=== PATIENT | female | born 1955 | race Caucasian/White ===

== ENCOUNTER 2017-06-23 21:00 | Emergency (ER) | payer BC, OTHER ==
[~2017-06-23] VITALS: Ht 162.6 cm; Wt 83.3 kg
[~2017-06-23 21:00] MED LIST: ASCO10003 PO; ASPEC81 PO; B-COTAB18 PO; CLB200 PO; FOLIC ACID PO; GLUCTAB7 PO; HYDR-5688 PO; MULT-506 PO; OMEG10002 PO; OXYSR10 PO; SNK PO; SPEC1TAB PO; VITAMIN B12 PO; VITAMIN E PO; ZINC PO
[2017-06-23 21:03] VITALS: TEMP 36.8; Ht 162.6 cm; Wt 83.3 kg
[2017-06-23] MEDS ORDERED: LORAZEPAM 2 MG/ML 1 ML VIAL IV STA (21:39)
[2017-06-23] MEDS ORDERED: SODIUM CHLORIDE 0.9% 1000ML 1,000 ML IV ONE (21:45)
[2017-06-23 22:00] VITALS: O2SAT 98
[2017-06-23 22:07] LABS: BASO % 0.3 %; BASO ABS # 0.04 K/uL (0-0.2); EOS % 2.4 %; EOS ABS # 0.28 K/uL (0-0.5); HEMATOCRIT 43.3 % (37-47); HEMOGLOBIN 14.5 g/dL (12.0-16.0); IG# 0.02 K/uL (0.00-0.02); LYMPH % 18.8 %; LYMPH ABS # 2.19 K/uL (1.2-3.4); MEAN CELL VOLUME 83.1 fL (80-100); MEAN CORPUSCULAR HEMOGLOBIN 27.8 pg (25-34); MEAN CORPUSCULAR HGB CONC 33.5 g/dl (32-36); MEAN PLATELET VOLUME 9.6 fL (7.4-10.4); MONO % 6.3 %; MONO ABS # 0.74 K/uL (0.11-0.59); PLATELET COUNT 287 K/uL (130-400); RED CELL DISTRIBUTION WIDTH CV 15.3 % (11.5-14.5); WHITE BLOOD COUNT 11.67 K/uL (4.8-10.8)
[2017-06-23 22:24] LABS: CALCIUM 9.1 mg/dl (8.5-10.1); CREATININE 0.82 mg/dl (0.60-1.20); POTASSIUM 3.5 mmol/L (3.5-5.1)
[2017-06-23 22:35] LABS: TOTAL PROTEIN 7.9 gm/dl (6.4-8.2)
--- NOTE | 2017-06-23 23:05 | DIAGNOSTIC IMAGING REPORT ---
HEAD CT NONCONTRAST CT DOSE: 912.23 mGycm HISTORY: Headache/dizzy TECHNIQUE: Multiaxial CT images of the head were performed without the use of intravenous contrast. Automated exposure control was utilized for this study. A dose lowering technique was utilized adhering to the principles of ALARA. Comparison: None. Findings: The paranasal sinuses and mastoid air cells are clear. The calvarium and skull base are intact. The ventricles and sulci are within normal limits. There is no mass, hematoma, midline shift, or acute infarct. Impression: No acute intracranial abnormality. Electronically signed by: Coy Jordan M.D. 06/23/2017 11:03 PM Dictated Date/Time: 06/23/2017 11:01 PM
[2017-06-24] MEDS ORDERED: ATIVAN 1MG HOMEPACK PO ONE
[2017-06-24 00:08] VITALS: BP 138/74; PULSE 74; O2SAT 98
--- NOTE | 2017-06-25 02:29 | EMERGENCY ROOM VISIT NOTE ---
History First contact with patient: 21:28 Chief Complaint: HEAD PAIN Stated Complaint: HEAD PRESSURE,SHAKY,EAR PRESSURE History of Present Illness The patient is a 62 year old female who presents to the Emergency Room with complaints of head pain and shakiness worsening over the past 1-2 days. The patient has a history of anxiety, and states that she was on Prozac from 2003 to about 2014. She states that she discontinued this medication and has had intermittent panic symptoms lasting 20 seconds, however these are occurring only 1-2 times a month. She states that she is under increased stressors over the past week, as she had to place her mother into a group home. The patient went to the group home today, where she states that she felt very hot, sweaty , and shaky. The patient is complaining of a head pain and pressure, but no other symptoms. She states there is some vague dizziness with moving her head quickly from side to side. She does not have chest pain, chest tightness, or shortness of breath. No numbness or paresthesias. She took 2 isno-vkl-ohkhlvl Aleve this morning for her symptoms which did seem to help. She also took Ativan tonight which also helped. She rates her overall discomfort a 4/10. This is not the worse headache of her life. She does not have a history of cardiac disease or diabetes. Review of Systems More than 10 systems were reviewed and otherwise negative with the exception of history of present illness. Past Medical/Surgical History History of anxiety Family History No pertinent family history Social History Smoking Status: Never Smoker Marital Status: Housing Status: lives with family Current/Historical Medications No Active Prescriptions or Reported Meds Physical Exam Vital Signs Date Time Temp Pulse Resp B/P (MAP) Pulse Ox O2 Delivery O2 Flow Rate FiO2 06/24/17 00:08 74 20 138/74 98 06/23/17 23:01 78 20 145/80 98 Room Air 06/23/17 22:00 98 Room Air 06/23/17 21:57 78 06/23/17 21:56 76 160/79 83 177/99 196/104 06/23/17 21:03 36.8 92 20 181/102 97 Room Air Physical Exam VITALS: Vitals are noted on the nurse's note and reviewed by myself. Vital signs stable. GENERAL: Well-developed, well-nourished, white female who appears anxious but nontoxic. She is cooperative with examination. HEAD: Normocephalic atraumatic. EARS: External ear normal. External auditory canals clear, tympanic membranes pearly laird without erythema or effusion bilaterally. EYES: Pupils equal round and reactive to light and accommodation. Conjunctivae without injection, sclerae without icterus. Extraocular movements intact. NOSE: Patent, turbinates without inflammation or discharge. MOUTH: Mucous membranes moist. Tonsils are not enlarged. Pharynx without erythema, blood, or exudate. Uvula midline. Airway patent. NECK: Supple without nuchal rigidity. No lymphadenopathy. No thyromegaly. Cervical spine is nontender. HEART: Regular rate and rhythm without murmurs gallops or rubs. LUNGS: Clear to auscultation bilaterally without wheezes, rales or rhonchi. No retractions or accessory muscle use. MUSCULOSKELETAL: No muscle atrophy, erythema, or edema noted. Full range of motion without joint tenderness in all extremities. NEURO: Patient was alert and oriented to person place and time. CN II through XII grossly intact. Medical Decision & Procedures ER Provider Diagnostic Interpretation: HEAD CT NONCONTRAST CT DOSE: 912.23 mGycm HISTORY: Headache/dizzy TECHNIQUE: Multiaxial CT images of the head were performed without the use of intravenous contrast. Automated exposure control was utilized for this study. A dose lowering technique was utilized adhering to the principles of ALARA. Comparison: None. Findings: The paranasal sinuses and mastoid air cells are clear. The calvarium and skull base are intact. The ventricles and sulci are within normal limits. There is no mass, hematoma, midline shift, or acute infarct. Impression: No acute intracranial abnormality. Laboratory Results 06/23/17 21:53 Red Blood Count 5.21, Mean Corpuscular Volume 83.1, Mean Corpuscular Hemoglobin 27.8, Mean Corpuscular Hemoglobin Concent 33.5, Mean Platelet Volume 9.6, Neutrophils (%) (Auto) 72.0, Lymphocytes (%) (Auto) 18.8, Monocytes (%) (Auto) 6.3, Eosinophils (%) (Auto) 2.4, Basophils (%) (Auto) 0.3, Neutrophils # (Auto) 8.40, Lymphocytes # (Auto) 2.19, Monocytes # (Auto) 0.74, Eosinophils # (Auto) 0.28, Basophils # (Auto) 0.04 06/23/17 21:53 Test 06/23/17 00:00 06/23/17 21:53 06/23/17 21:57 Urine Color YELLOW Urine Appearance CLEAR (CLEAR) Urine pH 5.0 (4.5-7.5) Urine Specific [place] 1.015 (1.000-1.030) Urine Protein NEG (NEG) Urine Glucose (UA) NEG (NEG) Urine Ketones NEG (NEG) Urine Occult Blood NEG (NEG) Urine Nitrite NEG (NEG) Urine Bilirubin NEG (NEG) Urine Urobilinogen NEG (NEG) Urine Leukocyte Esterase NEG (NEG) White Blood Count 11.67 K/uL (4.8-10.8) Red Blood Count 5.21 M/uL (4.2-5.4) Hemoglobin 14.5 g/dL (12.0-16.0) Hematocrit 43.3 % (37-47) Mean Corpuscular Volume 83.1 fL (80-100) Mean Corpuscular Hemoglobin 27.8 pg (25-34) Mean Corpuscular Hemoglobin Concent 33.5 g/dl (32-36) Platelet Count 287 K/uL (130-400) Mean Platelet Volume 9.6 fL (7.4-10.4) Neutrophils (%) (Auto) 72.0 % Lymphocytes (%) (Auto) 18.8 % Monocytes (%) (Auto) 6.3 % Eosinophils (%) (Auto) 2.4 % Basophils (%) (Auto) 0.3 % Neutrophils # (Auto) 8.40 K/uL (1.4-6.5) Lymphocytes # (Auto) 2.19 K/uL (1.2-3.4) Monocytes # (Auto) 0.74 K/uL (0.11-0.59) Eosinophils # (Auto) 0.28 K/uL (0-0.5) Basophils # (Auto) 0.04 K/uL (0-0.2) RDW Standard Deviation 46.0 fL (36.4-46.3) RDW Coefficient of Variation 15.3 % (11.5-14.5) Immature Granulocyte % (Auto) 0.2 % Immature Granulocyte # (Auto) 0.02 K/uL (0.00-0.02) Anion Gap 8.0 mmol/L (3-11) Est Creatinine Clear Calc Drug Dose 73.3 ml/min Estimated GFR () 88.3 Estimated GFR (Non- 76.2 BUN/Creatinine Ratio 14.6 (10-20) Calcium Level 9.1 mg/dl (8.5-10.1) Magnesium Level 2.3 mg/dl (1.8-2.4) Total Bilirubin 0.3 mg/dl (0.2-1) Aspartate Amino Transf (AST/SGOT) 16 U/L (15-37) Alanine Aminotransferase (ALT/SGPT) 27 U/L (12-78) Alkaline Phosphatase 114 U/L (45-117) Total Protein 7.9 gm/dl (6.4-8.2) Albumin 4.0 gm/dl (3.4-5.0) Globulin 3.9 gm/dl (2.5-4.0) Albumin/Globulin Ratio 1.0 (0.9-2) Lipase 142 U/L (73-393) Thyroid Stimulating Hormone (TSH) 1.600 uIu/ml (0.300-4.500) Lyme Disease IgG Antibody NEG (NEG) Lyme Disease IgM Antibody NEG (NEG) Bedside Troponin I < 0.030 ng/ml (0-0.045) Medications Administered Medications (Trade) Dose Ordered Sig/Scar Route Start Time Stop Time Status Last Admin Dose Admin Sodium Chloride 1,000 ml @ 999 mls/hr Q1H1M ONCE IV 06/23/17 21:45 06/23/17 22:45 DC 06/23/17 21:53 999 MLS/HR Lorazepam (Ativan Inj) 1 mg NOW STAT IV 06/23/17 21:39 06/23/17 21:42 DC 06/23/17 21:53 1 MG Lorazepam (Ativan 1MG Home Pack) 1 homepack UD ONCE PO 06/24/17 00:00 06/24/17 00:01 DC 06/24/17 00:05 1 HOMEPACK ED Course Physical exam and history were performed. Nursing notes, EMR, and Medication List were personally reviewed. Patient appears to have multiple complaints her to the emergency department this evening. Her primary concern is for some head pain as well as some anxiety symptoms. She evidently has a long standing history of anxiety that was previously controlled with SSRIs. She is not currently medicated for this. She has had increased stressors in her personal life the past few weeks. She relates that her had knee surgery, her sister's had bypass, and the patient's mother was admitted to the hospital and ultimately transported to a local group home. This seems to be worsening her overall symptoms. IV access was established and labs were obtained. The patient was hydrated and medicated as above. She is complaining of headache symptoms I did elect CT scan of her head. The patient's blood work is as above and was reviewed. She does not have a significantly elevated white blood cell count, gross anemia, bandemia, or significant electrolyte imbalance. Lipase and transaminases are nondiagnostic. TSH is in euthyroid state. CT scan of the head is nondiagnostic. Overall the patient reported significant improvement after hydration and Ativan here in the department. She continues to be mildly anxious but overall nontoxic. I discussed further options of care with the patient and feel that she is well for discharge home. Likely do suspect that her symptoms are related to her chronic generalized anxiety disorder that is exacerbated secondary to recent stressors. I will provide her a home pack of Ativan and have her follow with primary care physician for further management. The patient was certainly invited back to the ER with any new, worsening, or concerning symptoms. She was out of care was discharged home under the care of her who is acting as the otr flatbed driver today The chart was completed utilizing [employer] Speech Voice Recognition Software. Grammatical errors, random word insertions, pronoun errors, and incomplete sentences are an occasional consequence of this system due to software limitations, ambient noise, and hardware issues. Any formal questions or concerns about the content, text, or information contained within the body of this dictation should be directly addressed to the provider for clarification. . Medical Decision Differential diagnosis: Etiologies such as infection, intracranial bleed, mood disorder, infection, hypoglycemia, electrolyte abnormalities, cardiac sources, intracerebral event, toxicologic, neurologic, as well as others were entertained. Impression Primary Impression: Anxiety Departure Information Prescriptions No Active Prescriptions or Reported Meds Referrals Italo Chapa M.D.([facility]) (PCP) Patient Instructions My [facility]
== END 2017-06-24 00:09 | disposition home or self-care (01) ==
LOC: C.EDB 21:02
DX: F41.9 Anxiety disorder, unspecified (principal)

== ENCOUNTER 2017-09-05 05:10 | Inpatient (IN) | payer BC ==
[2017-08-09 14:32] VITALS: BMI 29.0
--- NOTE | 2017-08-09 14:56 | PAT Medication Instructions ---
Service Date Aug 09, 2017. Current Home Medication List Acetaminophen (Tylenol), 1,000 MG PO PRN Fluoxetine (Prozac), 40 MG PO QAM Hydroxyzine Pamoate (Vistaril), 1 CAP PO TID PRN for prn Ibuprofen Tab (Advil), 400 MG PO PRN Lorazepam (Ativan), 0.5 MG PO TID PRN for PRN Multivitamin (Multivitamin), 1 TAB PO QAM Medication Instructions For Your Scheduled Surgery -Contact your surgeon for instructions for: Ibuprofen Tab (Advil), 400 MG PO PRN - Hold the following medications the morning of surgery: Multivitamin (Multivitamin), 1 TAB PO QAM - Take the following medications the morning of surgery with a sip of water: Acetaminophen (Tylenol), 1,000 MG PO PRN (if needed, can be taken up to four hours before surgery) Fluoxetine (Prozac), 40 MG PO QAM Hydroxyzine Pamoate (Vistaril), 1 CAP PO TID PRN for prn (if needed) Lorazepam (Ativan), 0.5 MG PO TID PRN for PRN (if needed) - Take the following medications as scheduled the night before surgery: Acetaminophen (Tylenol), 1,000 MG PO PRN (if needed) Fluoxetine (Prozac), 40 MG PO QAM Hydroxyzine Pamoate (Vistaril), 1 CAP PO TID PRN for prn (if needed) Lorazepam (Ativan), 0.5 MG PO TID PRN for PRN (if needed) If you have any questions please call us at [phone] or [phone] or [phone]
--- NOTE | 2017-08-09 15:33 | DIAGNOSTIC IMAGING REPORT ---
CHEST 2 VIEWS ROUTINE CLINICAL HISTORY: Preoperative evaluation. COMPARISON STUDY: Chest radiograph January 20, 2015. FINDINGS: Lung volumes are normal. No pneumothorax or pleural effusion is noted. Linear left lower lung opacity is suggestive of atelectasis. There is no consolidation to suggest pneumonia. Cardiac size is normal. Mediastinal contours are normal. There is no evidence for pulmonary edema. IMPRESSION: No acute cardiopulmonary findings. Electronically signed by: Raghav Mary M.D. 08/09/2017 3:32 PM Dictated Date/Time: 08/09/2017 3:31 PM
[2017-08-09 15:38] LABS: PTT PATIENT 27.1 SECONDS (21.0-31.0)
[2017-08-09 15:49] LABS: BASO % 0.3 %; BASO ABS # 0.02 K/uL (0-0.2); EOS % 0.9 %; EOS ABS # 0.07 K/uL (0-0.5); HEMATOCRIT 41.4 % (37-47); HEMOGLOBIN 14.1 g/dL (12.0-16.0); LYMPH % 17.1 %; LYMPH ABS # 1.27 K/uL (1.2-3.4); MEAN CELL VOLUME 82.5 fL (80-100); MEAN CORPUSCULAR HEMOGLOBIN 28.1 pg (25-34); MEAN CORPUSCULAR HGB CONC 34.1 g/dl (32-36); MEAN PLATELET VOLUME 10.2 fL (7.4-10.4); MONO % 5.8 %; MONO ABS # 0.43 K/uL (0.11-0.59); NEUT % 75.9 %; NEUT ABS # 5.63 K/uL (1.4-6.5); PLATELET COUNT 265 K/uL (130-400); RED CELL DISTRIBUTION WIDTH CV 15.4 % (11.5-14.5); RED CELL DISTRIBUTION WIDTH SD 46.3 fL (36.4-46.3); WHITE BLOOD COUNT 7.42 K/uL (4.8-10.8)
[2017-08-09 16:41] LABS: ALBUMIN 3.8 gm/dl (3.4-5.0); CALCIUM 8.8 mg/dl (8.5-10.1); CREATININE 0.71 mg/dl (0.60-1.20)
[2017-08-10 06:38] LABS: HEMOGLOBIN A1C 5.8 % (4.5-5.6)
--- NOTE | 2017-08-24 14:51 | HISTORY & PHYSICAL EXAMINATION ---
DATE OF ADMISSION: 09/05/2017 CHIEF COMPLAINT: Left knee pain. HISTORY OF PRESENT ILLNESS: Rosibel is a 62-year-old female with a 2-year history of left knee pain. The patient rates her pain at 9/10. She has pain with her daily activities. She has limited standing and walking tolerance. Pain is worse with weightbearing. The patient has had injections, physical therapy, NSAIDs and home exercise program through the years without relief. She has failed conservative treatment and is scheduled for a left knee replacement. PAST MEDICAL HISTORY: Benign. She denies heart disease, diabetes or DVT. PAST SURGICAL HISTORY: Right total knee arthroplasty and left total hip arthroplasty. SOCIAL HISTORY: The patient denies tobacco use. She drinks 2 drinks per week. She lives in a 2-story home. She is and works in [employer]. FAMILY HISTORY: Positive for DVT in her mother. MEDICATIONS: Prozac, calcium, magnesium, fish oil 1200 mg, multivitamin, and Ativan p.r.n. ALLERGIES: None. REVIEW OF SYSTEMS: See HPI. Ten other systems reviewed, all negative. PHYSICAL EXAMINATION: VITAL SIGNS: Height 5 feet 4 inches, weight 177 pounds, and BMI 30. GENERAL: This is a well-developed and well-nourished female, who is alert and oriented x3. Mood and affect are appropriate. HEENT: Normocephalic and atraumatic. Mucous membranes are moist and intact. NECK: Supple without lymphadenopathy. HEART: Regular rate and rhythm without murmurs, rubs or gallops. LUNGS: Clear to auscultation without wheezes or rhonchi. ABDOMEN: Soft and nontender. Bowel sounds are equal and active. EXTREMITIES: No ecchymosis, redness or warmth. She has neutral alignment. Range of motion is from 5-115 degrees with +1 laxity. She is neurovascularly intact with +5/5 strength. X-RAY EXAMINATION: AP and lateral views show joint space narrowing and osteophyte formation. IMPRESSION: Degenerative joint disease, left knee. PLAN: The patient will be admitted for a left total knee arthroplasty. We will plan on aspirin for DVT prophylaxis. The patient will have [facility] for home physical therapy.
[2017-09-05] VITALS (9 sets, daily range): BP systolic 104–163; BP diastolic 61–94; PULSE 62–75; TEMP 36.4–37.1; O2SAT 96–99; Ht 162.6 cm; Wt 77.8 kg
[~2017-09-05] VITALS: Ht 162.6 cm; Wt 77.8 kg
[~2017-09-05 05:10] MED LIST changes: +ACET-1256 PO; -ASCO10003 PO; -ASPEC81 PO; -B-COTAB18 PO; -CLB200 PO; +FLUO40CA8 PO; -FOLIC ACID PO; -GLUCTAB7 PO; -HYDR-5688 PO; +HYDR25CA PO; +IBUP-103 PO; +LORA-741 PO; -OMEG10002 PO; -OXYSR10 PO; -SNK PO; -SPEC1TAB PO; -VITAMIN B12 PO; -VITAMIN E PO; -ZINC PO
[2017-09-05] MEDS ORDERED: GABAPENTIN 600 MG PO SCH (06:00)
[2017-09-05] MEDS ORDERED: CeleBREX 200 MG CAP PO SCH (06:00)
[2017-09-05] MEDS ORDERED: ACETAMINOPHEN 500 MG TAB PO SCH (06:00)
[2017-09-05] MEDS ORDERED: CEFAZOLIN 1000MG IV PUSH 7.5 ML IV SCH (06:00)
[2017-09-05] MEDS ORDERED: FAMOTIDINE 20 MG TAB PO SCH (06:00)
[2017-09-05] MEDS ORDERED: ROPIVACAINE 5MG/ML 30 ML 150 MG, BUPIVACAINE 0.5% MPF INJ 30 ML, EpINEphrine HCL INJ 0.... INFIL SCH ×8 (06:00)
[2017-09-05] MEDS ORDERED: METOCLOPRAMIDE HCL 10 MG TAB PO SCH (06:00)
[2017-09-05] MEDS ORDERED: LACTATED RINGER'S 1000ML 1,000 ML IV SCH (06:00)
[2017-09-05] MEDS ORDERED: LACTATED RINGER'S 1000ML 500 ML IV SCH (06:00)
[2017-09-05] MEDS ORDERED: DEXAMETHASONE 4 MG TAB PO SCH (06:00)
[2017-09-05] MEDS ORDERED: EpHEDrine SULFATE INJ 50 MG/ML AMP IV PRN (06:15)
[2017-09-05] MEDS ORDERED: ONDANSETRON INJ 2 MG/ML 2 ML VIAL IV PRN ×2 (06:15→09:00)
[2017-09-05] MEDS ORDERED: HYDROmorphone INJ 1 MG/ML SYR IV PRN (06:15)
[2017-09-05] MEDS ORDERED: FENTANYL CITRATE INJ 50 MCG/1 ML 2 ML VIAL IV PRN (06:15)
[2017-09-05] MEDS ORDERED: ATROPINE SULFATE 0.1 MG/ML 5ML SYR IV PRN (06:15)
[2017-09-05] MEDS ORDERED: PROMETHAZINE HCL INJ 12.5 MG in SODIUM CHLORIDE 0.9% 50ML 50 ML IV PRN (06:15)
[2017-09-05] MEDS ORDERED: PHENYLEPHRINE 100MCG/ML 5ML SYR IV PRN (06:15)
[2017-09-05] MEDS ORDERED: BUPIVACAINE 0.25% 30 ML VIAL ONE (06:29)
[2017-09-05] MEDS ORDERED: BUPIVACAINE 0.5 % 5 MG/1 ML PF 10ML VIAL ONE (06:29)
[2017-09-05] MEDS: TRANEXAMIC ACID INJ 1,000 MG x 2 Bags IV SCH ×4 (06:30→07:05)
[2017-09-05] MEDS ORDERED: MIDAZOLAM HCL 1 MG/ML 2ML VIAL ONE (06:53)
[2017-09-05] MEDS ORDERED: POVIDONE-IODINE OP SOLN 30 ML BTL ONE (06:53)
[2017-09-05] MEDS ORDERED: ORTHO JOINT ANESTHETIC ONE (06:53)
[2017-09-05] MEDS ORDERED: FENTANYL CITRATE INJ 50 MCG/1 ML 2 ML VIAL ONE ×2 (06:53→07:41)
[2017-09-05] MEDS ORDERED: BACITRACIN 50000 UNIT VIAL ONE (06:53)
--- NOTE | 2017-09-05 07:11 | History & Physical Bridge Note ---
H&P Re-Evaluation Bridge Note: I have examined the patient, reviewed the History & Physical and in the interval since the performance of the History & Physical I have noted the following changes of clinical significance: No changes noted
[2017-09-05] MEDS ORDERED: hydrOXYzine HCL 25 MG TAB PO PRN (07:15)
[2017-09-05] MEDS ORDERED: LORAZEPAM 0.5 MG TAB PO PRN (07:15)
[2017-09-05] MEDS ORDERED: ONDANSETRON INJ 2 MG/ML 2 ML VIAL ONE (08:34)
[2017-09-05] MEDS ORDERED: PROPOFOL IV EMULSION 10 MG/ML 20 ML VIAL IV ONE (08:34)
--- NOTE | 2017-09-05 08:46 | [facility] Post Operative Brief Note ---
Immediate Operative Summary Operative Date Sep 05, 2017. Pre-Operative Diagnosis Left knee degenerative joint disease Post-Operative Diagnosis Left knee degenerative joint disease Procedure(s) Performed Left total knee arthroplasty, cemented Surgeon Dr. Horta Distance Education Coordinator Surgeon(s) Samia Winslow PA-C Estimated Blood Loss 25 mL Findings Consistent with Post-Op Diagnosis Fluids (cc crystalloids) 1700 Specimens A: Left knee bone and tissue Drains None Anesthesia Type MAC Spinal Regional Complication(s) none Disposition Disposition: Recovery Room / PACU
[2017-09-05] MEDS ORDERED: PHENYLEPHRINE 100MCG/ML 5ML SYR ONE (08:55)
[2017-09-05] MEDS ORDERED: NEOSTIGMINE METHYLSULFATE 5 MG/5 ML SYR ONE (08:55)
[2017-09-05] MEDS ORDERED: TRAMADOL HCL 50 MG TAB PO PRN (09:00)
[2017-09-05] MEDS ORDERED: OXYCODONE HCL IR 5 MG TAB (IMMEDIATE RELEASE) PO PRN (09:00)
[2017-09-05] MEDS ORDERED: MAGNESIUM HYDROXIDE SUSP 30 ML UDC PO PRN (09:00)
[2017-09-05] MEDS ORDERED: MoRPHine SULFATE 4 MG/ML 1 ML CARP\\VIAL IV PRN (09:00)
--- NOTE | 2017-09-05 09:51 | DIAGNOSTIC IMAGING REPORT ---
L KNEE 1 OR 2 VIEWS ROUTINE CLINICAL HISTORY: Left knee osteoarthritis. Arthroplasty. COMPARISON: None FINDINGS: Alignment of the total left knee arthroplasty is anatomic. There is no fracture or unexpected radiopaque foreign body. Hardware is intact. IMPRESSION: Expected findings following total left knee arthroplasty. Electronically signed by: Raghav Mary M.D. 09/05/2017 9:50 AM Dictated Date/Time: 09/05/2017 9:49 AM
--- NOTE | 2017-09-05 10:02 | Anesthesiology Progress Note ---
Anesthesia Post Op Note Date & Time Sep 05, 2017 at 10:02 Vital Signs Pain Intensity: 0 Vital Signs Past 12 Hours Date Time Temp Pulse Resp B/P (MAP) Pulse Ox O2 Delivery O2 Flow Rate FiO2 09/05/17 09:39 77 18 98 09/05/17 09:39 76 18 09/05/17 09:37 106/64 09/05/17 09:34 73 17 100 09/05/17 09:34 74 17 09/05/17 09:33 74 14 09/05/17 09:33 74 14 100 09/05/17 09:33 74 14 09/05/17 09:33 74 14 100 09/05/17 09:32 107/61 09/05/17 09:32 107/61 09/05/17 09:28 75 15 100 09/05/17 09:28 75 15 09/05/17 09:28 75 15 100 09/05/17 09:28 75 15 09/05/17 09:26 105/60 09/05/17 09:26 105/60 09/05/17 09:23 74 17 09/05/17 09:23 74 17 09/05/17 09:23 74 17 100 09/05/17 09:23 74 17 100 09/05/17 09:22 102/60 09/05/17 09:22 102/60 09/05/17 09:19 106/57 09/05/17 09:19 106/57 09/05/17 09:18 78 20 09/05/17 09:18 78 20 99 09/05/17 09:18 36.4 76 16 106/57 99 Oxymask 10 09/05/17 09:18 78 20 09/05/17 09:18 78 20 99 09/05/17 05:40 37 75 20 163/94 98 Room Air Notes Mental Status: alert / awake / arousable, participated in evaluation Pt Amnestic to Procedure: Yes Nausea / Vomiting: adequately controlled Pain: adequately controlled Airway Patency, RR, SpO2: stable & adequate BP & HR: stable & adequate Hydration State: stable & adequate Neuraxial Anesthesia: was administered, sensory block is resolving Anesthetic Complications: no major complications apparent Comfortable, doing well, no complaints. VSS.
[2017-09-05] MEDS: FLUOXETINE HCL 20 MG CAP PO SCH (14:53)
[2017-09-05] MEDS: MULTIVITAMIN TAB PO SCH (14:54)
[2017-09-05] MEDS: ACETAMINOPHEN 500 MG TAB PO SCH ×2 (14:54→20:59)
[2017-09-05] MEDS: KETOROLAC TROMETHAMINE 30 MG/ML VIAL IV. SCH ×2 (14:55→20:58)
[2017-09-05] MEDS: CEFAZOLIN IV 1,000 MG in SYRINGE 0 ML IV SCH ×2 (16:27→23:00)
[2017-09-05] MEDS: SODIUM CHLORIDE 0.9% 1000ML 1,000 ML IV SCH (18:03)
[2017-09-05] MEDS ORDERED: NURSING VERBAL MED ORDER ONE (18:15)
--- NOTE | 2017-09-05 18:50 | Orthopedic Progress Note ---
Orthopedic Progress Note Date of Service Sep 05, 2017. Subjective Additional Notes: Post-operative progress note Patient seen laying in bed, comfortable, pain well controlled, no acute issues. Objective NAD, AOx3 PE: LLE: NVSI +EHL/FHL/TA/GS SILT grossly, CR< 2 seconds, + 2 DP pulse, compartment soft NT, dressing CDI Date Time Temp Pulse Resp B/P (MAP) Pulse Ox O2 Delivery O2 Flow Rate FiO2 09/05/17 16:05 37.1 66 16 110/69 (83) 98 Nasal Cannula 2.0 09/05/17 13:22 36.7 70 19 108/66 (80) 96 Nasal Cannula 2.0 09/05/17 12:25 63 14 105/63 (77) 98 Nasal Cannula 2.0 09/05/17 11:18 36.6 62 18 104/61 (75) 99 Nasal Cannula 2.0 09/05/17 10:51 36.4 62 19 111/70 (84) 99 Nasal Cannula 2.0 09/05/17 10:15 36.4 66 12 132/80 (97) 99 Nasal Cannula 2.0 09/05/17 10:15 Nasal Cannula 2.0 09/05/17 10:15 Nasal Cannula 09/05/17 10:07 112/74 09/05/17 10:05 72 12 97 09/05/17 10:05 69 12 09/05/17 10:01 36.6 67 21 121/67 96 Nasal Cannula 2 09/05/17 10:01 121/67 09/05/17 10:00 72 19 98 09/05/17 10:00 72 19 09/05/17 09:57 115/69 09/05/17 09:55 68 17 95 09/05/17 09:55 69 17 09/05/17 09:51 120/67 09/05/17 09:50 78 19 95 09/05/17 09:50 77 19 09/05/17 09:48 107/62 09/05/17 09:45 72 15 09/05/17 09:45 74 15 98 09/05/17 09:41 103/63 09/05/17 09:40 75 21 09/05/17 09:40 75 21 97 09/05/17 09:39 77 18 98 09/05/17 09:39 76 18 09/05/17 09:37 106/64 09/05/17 09:34 73 17 100 09/05/17 09:34 74 17 09/05/17 09:33 74 14 09/05/17 09:33 74 14 100 09/05/17 09:33 74 14 09/05/17 09:33 74 14 100 09/05/17 09:32 107/61 09/05/17 09:32 107/61 09/05/17 09:28 75 15 100 09/05/17 09:28 75 15 09/05/17 09:28 75 15 100 09/05/17 09:28 75 15 09/05/17 09:26 105/60 09/05/17 09:26 105/60 09/05/17 09:23 74 17 09/05/17 09:23 74 17 09/05/17 09:23 74 17 100 09/05/17 09:23 74 17 100 09/05/17 09:22 102/60 09/05/17 09:22 102/60 09/05/17 09:19 106/57 09/05/17 09:19 106/57 09/05/17 09:18 78 20 09/05/17 09:18 78 20 99 09/05/17 09:18 36.4 76 16 106/57 99 Oxymask 10 09/05/17 09:18 78 20 09/05/17 09:18 78 20 99 09/05/17 05:40 37 75 20 163/94 98 Room Air Assessment & Plan Assessment: s/p L TKA Plan: -ancef x 24 -DVT ppx: ASA BID -Pain controlled -WBAT LLE -PT/OT -AM labs -PO XR: well aligned well fixed total knee prosthesis without fracture or dislocation. -DC planning, home with
[2017-09-05] MEDS: DOCUSATE SODIUM 100 MG CAP PO SCH (20:58)
[2017-09-05] MEDS: ASPIRIN 325 MG ECTAB PO SCH (20:59)
[2017-09-05] MEDS ORDERED: SENNA 8.6 MG TAB PO SCH (21:00)
[2017-09-06] VITALS (8 sets, daily range): BP systolic 119–157; BP diastolic 70–82; PULSE 60–89; TEMP 36.7–37.1; O2SAT 94–98
[2017-09-06] MEDS: SODIUM CHLORIDE 0.9% 1000ML 1,000 ML IV SCH ×2 (02:37→07:20)
[2017-09-06] MEDS: KETOROLAC TROMETHAMINE 30 MG/ML VIAL IV. SCH ×2 (02:37→08:21)
[2017-09-06] MEDS: ACETAMINOPHEN 500 MG TAB PO SCH ×2 (05:39→13:50)
[2017-09-06 06:15] LABS: HEMATOCRIT 32.9 % (37-47); HEMOGLOBIN 10.8 g/dL (12.0-16.0); MEAN CELL VOLUME 82.9 fL (80-100); MEAN CORPUSCULAR HEMOGLOBIN 27.2 pg (25-34); MEAN CORPUSCULAR HGB CONC 32.8 g/dl (32-36); MEAN PLATELET VOLUME 10.2 fL (7.4-10.4); PLATELET COUNT 210 K/uL (130-400); RED CELL DISTRIBUTION WIDTH CV 15.4 % (11.5-14.5); WHITE BLOOD COUNT 11.75 K/uL (4.8-10.8)
[2017-09-06 06:39] LABS: CALCIUM 7.9 mg/dl (8.5-10.1); CREATININE 0.77 mg/dl (0.60-1.20); POTASSIUM 3.9 mmol/L (3.5-5.1)
[2017-09-06] MEDS ORDERED: RXC5 PO (07:30)
[2017-09-06] MEDS ORDERED: ONDA-170 PO (07:30)
[2017-09-06] MEDS ORDERED: SENN-61 PO (07:30)
[2017-09-06] MEDS ORDERED: ASPEC325 PO (07:30)
[2017-09-06] MEDS ORDERED: ACET-1256 PO (07:30)
[2017-09-06] MEDS ORDERED: CLB200 PO (07:30)
--- NOTE | 2017-09-06 07:31 | Discharge Instructions ---
Discharge Instructions Date of Service Sep 06, 2017. Admission Reason for Admission: Left Knee Osteoarthritis Discharge Discharge Diagnosis / Problem: SP LEFT TKA Discharge Goals Goal(s): Decrease discomfort, Improve function, Increase independence Activity Recommendations Activity Limitations: per Instructions/Follow-up section . Instructions / Follow-Up Instructions / Follow-Up ACTIVITY RECOMMENDATIONS: SELF CARE INSTRUCTIONS AFTER TOTAL KNEE REPLACEMENT A. You may need to continue a physical therapy program after discharge from the hospital. There are several options available to you. Your doctor will assist you in selecting the best one for you. 1. An out-patient facility 2 to 3 times a week for therapy or home therapy. 2. Continue working on all exercises taught to you in the hospital. Your goals should be to increase bending of your knee to 90 degrees and beyond and to fully straighten your knee. B. You may progress at your own pace from walking with a walker or crutches to a cane; then to no assistive devices. C. Make walking a part of your daily routine. Be up as much as comfortable with rest periods throughout the day. Rest with leg elevation is very important. Use the ice wrap frequently for the first 3-4 weeks. D. There are no restrictions on activities. You may ride in a car, shop, participate in molder setter and all social activities. E. Wear the long elastic stockings (LYNDON hose) 20 hours a day for 2 weeks after surgery. They can be removed several times a day for laundering and for a bath. F. You may shower, no tub baths until cleared by your doctor. SPECIAL CARE INSTRUCTIONS: VERY IMPORTANT TO READ AND REVIEW A. There are a few signs you need to watch for after you are home. Call [facility] if you notice any of the followin. Increased severe knee pain. Some pain is expected especially when you exercise. 2. Increased swelling in your leg or knee; pain or swelling of the calf muscle in either lower leg. 3. Any fluid drainage from the incision. 4. Shortness of breath or chest pain. B. Please call [facility] at if you have any concerns or questions about your operation or recovery. The doctor or his nurse will return your call promptly. C. You must take antibiotics before dental work, bladder, bowel or other surgery. Your doctor will provide you with a permanent care to carry describing this precaution. IMPORTANT: * REMEMBER TO TAKE ASPIRIN, 325 MG, TWICE DAILY FOR 4 WEEKS UNLESS OTHERWISE DIRECTED. THIS IS YOUR BLOOD THINNER. * HIGH RISK PATIENTS MAY BE PRESCRIBED A STRONGER BLOOD THINNER. THIS WILL BE PROVIDED AT DISCHARGE. * CALL IF INCREASED PAIN, REDNESS, DRAINAGE OR FEVER GREATER THAT 101. * WEAR LYNDON HOSE 20 HOURS PER DAY FOR 2 WEEKS. * DERMABOND Prineo- This is a mesh tape dressing that is covered with glue. It should remain in place until the incision is properly healed, usually 10-14 days. This dressing is designed to naturally slough off. You may trim the excess mesh tape as it peels off. Incision may be briefly wet in a shower. Dry immediately by blotting with a clean, dry towel. Do not bath or swim until instructed by your doctor. Do not scratch, rub, or pick at the dressing. Do not apply any topical ointments or lotions until dressing is completely removed and/or instructed by your doctor. There may be a small piece of suture material at one end of your incision. Do not pull or trim this. If it is bothersome or catching on clothing, you may cover it with a band-aid. FOLLOW UP VISIT: If appointment is not already scheduled: Please call [facility] to make a follow-up appointment for 2 weeks after your surgery at . Current Hospital Diet Patient's current hospital diet: Regular Diet Discharge Diet Recommended Diet: Regular Diet Procedures Procedures Performed: Left total knee arthroplasty, cemented Pending Studies Studies pending at discharge: no Laboratory Results Hemoglobin A1c Test 08/09/17 15:06 Range/Units Estimated Average Glucose 120 mg/dl Hemoglobin A1c 5.8 H 4.5-5.6 % Medical Emergencies . Who to Call and When: Medical Emergencies: If at any time you feel your situation is an emergency, please call 911 immediately. . Non-Emergent Contact Non-Emergency issues call your: Surgeon . "Provider Documentation" section prepared by Samia Winslow. . [place] Drug Monitoring Program Search Results: patient reviewed within database, no issues identified
[2017-09-06] MEDS: DOCUSATE SODIUM 100 MG CAP PO SCH (08:19)
[2017-09-06] MEDS: MULTIVITAMIN TAB PO SCH (08:20)
[2017-09-06] MEDS: ASPIRIN 325 MG ECTAB PO SCH (08:20)
[2017-09-06] MEDS: FLUOXETINE HCL 20 MG CAP PO SCH (08:20)
[2017-09-06] MEDS ORDERED: PANTOprazole SOD 40 MG TAB PO SCH (09:00)
--- NOTE | 2017-09-06 10:06 | Orthopedic Progress Note ---
Orthopedic Progress Note Date of Service Sep 06, 2017. Subjective Additional Notes: Patient seen laying in bed, comfortable, pain well controlled, no complaints, no acute issues overnight. Objective NAD, AOx3 PE LLE: NVSI +EHL/FHL/TA/GS SILT grossly, CR< 2 seconds, + 2 DP pulse, compartment soft NT, dressing CDI Date Time Temp Pulse Resp B/P (MAP) Pulse Ox O2 Delivery O2 Flow Rate FiO2 09/06/17 09:37 96 Room Air 09/06/17 08:01 36.7 62 21 96 Room Air 09/06/17 07:56 36.7 62 21 124/70 (88) 96 Room Air 09/06/17 07:30 98 Room Air 09/06/17 03:51 37.1 71 16 119/73 (88) 98 Room Air 09/05/17 23:24 37.0 68 16 127/70 (89) 97 Room Air 09/05/17 20:45 Room Air 09/05/17 19:31 36.9 16 132/70 (90) 97 Room Air 09/05/17 16:05 37.1 66 16 110/69 (83) 98 Nasal Cannula 2.0 09/05/17 13:22 36.7 70 19 108/66 (80) 96 Nasal Cannula 2.0 09/05/17 12:25 63 14 105/63 (77) 98 Nasal Cannula 2.0 09/05/17 11:18 36.6 62 18 104/61 (75) 99 Nasal Cannula 2.0 09/05/17 10:51 36.4 62 19 111/70 (84) 99 Nasal Cannula 2.0 09/05/17 10:15 36.4 66 12 132/80 (97) 99 Nasal Cannula 2.0 09/05/17 10:15 Nasal Cannula 2.0 09/05/17 10:15 Nasal Cannula 09/05/17 10:07 112/74 09/05/17 10:05 72 12 97 09/05/17 10:05 69 12 Laboratory Results 24 Hours: Test 09/06/17 05:23 Hematocrit 32.9 % Hemoglobin 10.8 g/dL Prothromb Time International Ratio 1.0 Prothrombin Time 10.6 SECONDS Assessment & Plan Assessment: s/p L TKA POD#1 Plan: -ancef x 24 -DVT ppx: ASA BID -Pain controlled -WBAT LLE -PT/OT -AM labs -PO XR: well aligned well fixed total knee prosthesis without fracture or dislocation. -DC planning, home with HH
--- NOTE | 2017-09-06 13:12 | [facility] Operative Report ---
Operative Report Operative Date Sep 06, 2017. Pre-Operative Diagnosis Left knee degenerative joint disease Post-Operative Diagnosis Left knee degenerative joint disease Procedure(s) Performed Left total knee arthroplasty, cemented Surgeon Dr. Horta Ssas Developer Surgeon(s) Samia Winslow PA-C Estimated Blood Loss 25 mL Findings see dictated op note Fluids 1700 Specimens A: Left knee bone and tissue Drains None Anesthesia Type MAC Spinal Regional Complication(s) none Disposition Recovery Room / PACU Indications The patient is a 62-year-old female who presents with long history of left knee severe tricompartmental DJD which is failed outpatient conservative treatments including NSAIDs, bracing, cortisone injections home walking/exercise program. The patient's symptoms have progressed to the point where it has been difficult for to perform normal activities of daily living. I have indicated the patient for a left total knee arthroplasty, the risks and benefits and complications of the procedure include but are not limited to infection bleeding damage to bone nerves vessels surrounding soft tissue, blood clots loss of function leg length discrepancy dislocation failure of the components need for additional surgery and . The patient wished to proceed with surgery at this time and informed consent was obtained. Appropriate clearances were obtained. Description of Procedure The patient was taken to the operating room and appropriate anesthesia was administered. She was placed supine on the operating room table. A foot roll was placed so we could flex the knee during the procedure as needed. Pneumatic tourniquet was placed on the left upper thigh. Left lower extremity was prepped and draped in usual sterile fashion. Exam demonstrated that she had a varus knee fairly good range of motion. She had moderate obesity. After the leg was sterilely prepped and draped, it was elevated, exsanguinated with Esmarch bandage. Pneumatic tourniquet was raised to 300 mmHg. A midline incision was made anteriorly across the left knee. Skin was incised sharply and subcutaneous flaps were elevated. Incision was made through the medial retinaculum extended up in the mid third of the quadriceps tendon and extended down to the medial tibial tubercle. Intraarticular findings demonstrated that she had significant DJD medial compartment and PFJ [id number] with a varus knee. She did have some tricompartmental osteophytes. The [employer] 2.0 total knee arthroplasty system was used using [employer] [place] MRI templating and her femur sized for a 5, tibia for a 3 component. To expose the knee the infrapatellar fat pad was resected. The lateral synovial bands were released. The cruciate ligaments were resected. The meniscal remnants were resected. The fat pad over the anterior femur just above the articular surface for placement of the component in that area was resected. The knee was flexed and retractors were placed and the custom femoral cutting block was pinned in position and the distal femoral cut was made. Then the 5-in-1 cutting block was placed and the anterior, posterior and chamfer cuts were made for the 5 femur. Then attention was taken back to the tibia which was subluxed anteriorly and the custom tibial cutting block was pinned in position and the proximal tibial cut was made. Then we assessed ligamentous balance in extension and flexion utilizing the 10mm spacer block and drop robin and did some releases around the medial side to help with the balance. At this time, the tibia was then resubluxed and the 3 tibial trial was placed in position, externally rotated laterally with the tibial tubercle. The tibal drill and punch for the stem was used. Next the 5 femoral trial was inserted, centered and the notch cutting devices were used to finish prepping the femur. A trial 10mm tibial articulating surface was inserted assessed ligamentous balance again. The 10 trial insert gave balanced ligaments through full range of motion. At this time the knee was extended and a subperiosteal peel lateral release was performed around the patella. Patella width was measured and the patella was prepped utilizing the patella reamer and the 3 drill holes were made for the pegs. The excess lateral facet was beveled off to prevent any impingement. A 29mm oval patella button was placed and the patella tracked centrally. The trials were removed; the orthopedic anesthetic cocktail was injected per protocol. The knee was copiously irrigated with pulsatile lavage antibiotic solution with bacitracin. The final components were then cemented into place and trial tibial articulating surface inserted. Final components were the 5 Oxinium posterior stabilized [employer] 2.0 left femoral component, size 3 primary tibial baseplate and 29mm patella. Once the cement cured, we trialed once more with the 10mm tibial articulating surface and found the knee to be stable throughout full ROM. The trial component was removed and the final 10mm tibial articular surface was inserted. We copiously irrigated out the knee with pulsatile lavage antibiotic solution and bacitracin. The quadriceps and medial retinaculum were closed with interrupted [id number] #1 Vicryl sutures. The knee was taken through full range of motion and repair was secure. Subcutaneous tissues were closed with interrupted 2-0 Vicryl sutures followed by 3-0 V lock and then the skin was closed with dermabond prineo skin closure system. The sterile dressings were applied and an Wade wrap from the foot to thigh. Tourniquet was let down and the patient had good capillary refill to the extremity. The patient tolerated the procedure well and was taken to the PACU in stable condition. Due to the complex nature of the procedure, the entire surgery was performed with the operational assistance of Yeimy Winslow PA-C. The general office assistant, under direct supervision, was involved in the actual performance of all aspects of the surgical procedure including hemostasis, tissue retraction and incision, instrument management, patient positioning, and wound closure. I attest to the content of the Intraoperative Record and any orders documented therein. Any exceptions are noted below. I attest to the content of the Intraoperative Record and any orders documented therein. Any exceptions are noted below. I attest to the content of the Intraoperative Record and any orders documented therein. Any exceptions are noted below.
[2017-09-06] MEDS ORDERED: CeleBREX 200 MG CAP PO SCH (21:00)
--- NOTE | 2017-09-07 15:12 | Anesthesiology Progress Note ---
Anesthesia Post Op Note Date & Time Sep 07, 2017 at 15:12 Vital Signs Pain Intensity: 4.0 Notes Mental Status: alert / awake / arousable, participated in evaluation Pt Amnestic to Procedure: Yes Nausea / Vomiting: adequately controlled Pain: adequately controlled Airway Patency, RR, SpO2: stable & adequate BP & HR: stable & adequate Hydration State: stable & adequate Neuraxial Anesthesia: sensory block resolved Anesthetic Complications: no major complications apparent This post-op visit was made on September 06, 2016 @ 07:30 AM
== END 2017-09-06 17:05 | disposition home health service (06) | DRG 470 ==
LOC: C.ACU 05:10 → C.3E 07:00 → ENRESERV 09:52
PROVIDERS: ADMIT Orthopaedic Surgery; ATTEND Orthopaedic Surgery
PROC: 0SRD0J9 Replacement of Left Knee Joint with Synthetic Substitute, Cemented, Open Approach (ICD-10-PCS; principal; 2017-09-05 07:15)
DX: M17.12 Unilateral primary osteoarthritis, left knee (principal); F41.9 Anxiety disorder, unspecified; F17.200 Nicotine dependence, unspecified, uncomplicated; Z96.651 Presence of right artificial knee joint; Z96.642 Presence of left artificial hip joint; Z79.899 Other long term (current) drug therapy; Z83.2 Family history of diseases of the blood and blood-forming organs and certain disorders involving the immune mechanism